=== PATIENT | female | born 1935 | race Caucasian/White ===

== ENCOUNTER 2017-03-08 08:48 | Outpatient (CLI) | payer MEDICARE | END 2017-03-08 08:49 | disposition home or self-care (01) | DX: E03.8 Other specified hypothyroidism (principal); D86.0 Sarcoidosis of lung ==

== ENCOUNTER 2018-05-18 07:57 | Outpatient (CLI) | payer MEDICARE ==
[2018-05-18 08:43] LABS: THYROID STIMULATING HORMONE < 0.08 uIU/mL (0.34-5.60)
[2018-05-18 08:45] LABS: FREE T4 (FREE THYROXINE) 1.25 ng/dL (0.58-1.64)
== END 2018-05-18 07:58 | disposition home or self-care (01) ==
LOC: LAB 07:57
PROVIDERS: ATTEND Naturopath
DX: Z51.81 Encounter for therapeutic drug level monitoring (principal); E03.8 Other specified hypothyroidism
CPT/HCPCS: 36415; 84439; 84443; 84481